=== PATIENT | female | born 1975 | race Two or more races ===

== ENCOUNTER 2024-01-13 03:05 | Emergency (ER) | payer BC ==
[~2024-01-13] VITALS: Ht 162.6 cm; Wt 46.7 kg
[2024-01-13 03:40] VITALS: BP 132/74; TEMP 98; O2SAT 99
== END 2024-01-13 04:30 | disposition home or self-care (01) ==
LOC: ER 03:08
DX: M79.671 Pain in right foot (principal); E78.5 Hyperlipidemia, unspecified; Z90.89 Acquired absence of other organs; Z85.850 Personal history of malignant neoplasm of thyroid